=== PATIENT | female | born 1995 | race Hispanic/Latino ===

== ENCOUNTER 2021-02-11 19:22 | Emergency (ER) | payer OTHER, SELFPAY ==
--- NOTE | 2021-02-11 19:31 | ED.EXTPRO ---
HPI - Extremity Problem General Chief complaint: Extremity Problem,Nontraumatic Stated complaint: Vein pain on leg Time Seen by Provider: 02/11/21 19:31 Source: patient Mode of arrival: ambulatory Limitations: no limitations History of Present Illness HPI Narrative: Dain Neri is a 26 yo female with PMH of GERD, Ishmael Danlo syndrome, comes with pain in vein of left inner thigh to foot x 2weeks - has tried ice, ibuprofen, tiger balm, without improvement. She is concerned about having a blood clot Related Data Home Medications Medication Instructions Recorded Confirmed duloxetine mg PO 02/11/21 famotidine 02/11/21 levonorgestrel [Mirena] 1 device INTRAUTERINE ONCE 02/11/21 02/11/21 Allergies Allergy/AdvReac Type Severity Reaction Status Date / Time Penicillins Allergy Mild Rash Unverified 02/11/21 19:35 AMOXICILLIN TRIHYDRATE Allergy Unknown Rash Uncoded 02/11/21 19:35 POTASSIUM CLAVULANATE Allergy Unknown Rash Uncoded 02/11/21 19:35 Review of Systems Review of Systems: Narrative: CONSTITUTIONAL: Denies fever, chills, sweats. EYES: Denies visual changes, redness, discharge. ENT: Denies rhinorrhea, congestion, sore throat, otalgia. CARDIOVASCULAR: Denies chest pain, palpitations, edema. RESPIRATORY: Denies dyspnea, wheezing, cough GASTROINTESTINAL: Denies abdominal pain, nausea, vomiting, diarrhea. GENITOURINARY: Denies dysuria, hematuria, abnormal discharge SKIN: Denies rash or itching. NEUROLOGIC: Denies numbness, or focal weakness. PSYCHIATRIC: Denies anxiety or depression. Left leg pain and small bruise at the medial thigh PMFSH Past Medical History Medical History Ishmael-Danlos disease GERD (gastroesophageal reflux disease) Social History Social History (Updated 02/11/21 @ 19:52 by Leta John CNP) Smoking status: Never smoker Living arrangements: with family Comments At time of signature, I agree with nursing past medical, surgical, social and family history. There is no relevant family history pertinent to the presenting complaint. Exam Narrative: Exam Narrative: GENERAL: This is a well-nourished, well-developed patient, in mild distress. HEAD: normocephalic, atraumatic. EYES: PERRL. Sclera clear/white. Vision is grossly intact. EARS: External ears normal, auditory canals clear and without drainage, TMs normal without perforation. Hearing grossly intact. NOSE: External nose normal without nasal discharge, nares without redness, no rhinorrhea. THROAT: Mucous membranes moist, posterior pharynx NECK: Neck supple, non-tender CARDIOVASCULAR: Regular rate and rhythm without murmurs, gallops, or rubs. RESPIRATORY: Clear to auscultation. Breath sounds equal bilaterally. No wheezes, rales, or rhonchi. GASTROINTESTINAL: Abdomen soft, non-tender, SKIN: warm, intact with no suspicious lesions or rash, good texture and turgor. NEURO: awake, alert, and oriented to person, place and time. There were no obvious focal neurologic abnormalities. Steady gait EXTREMITIES: Normal range of motion. Patient has light bruise at medial side of ankle says she has pain up the vein all the way up her left leg-no swelling of the calves no redness no warmth. There is symmetrical BACK: Nontender without deformity Course Course Emergency Course: Her concern is that she has a blood clot discussed that if it worsens she go to the ER for evaluation but given that is going on for 2 weeks and she has a primary care doctor in [place] that deals with her disease she should call them first thing on Saturday morning except an appointment as they have her history and are more familiar with potential complications of her illness Encouraged to use [id number] medications for pain offered small dose of muscle her axilla which she refused Vital Signs Vital signs: Vital Signs Temperature 99.2 F 02/11/21 19:32 Pulse Rate 128 H 02/11/21 19:32 Respiratory Rate
[2021-02-11 19:32] VITALS: BP 133/87; PULSE 128; RESP 12; TEMP 37.3; O2SAT 99
[2021-02-11 19:36] VITALS: BP 133/87; PULSE 128; RESP 12; TEMP 37.3; O2SAT 99
--- NOTE | 2021-02-11 19:40 | PC.NURSE ---
0-left extremity warm to touch, pedal pulse present. Patient reports pain from mid thigh to ankle on the medial aspect of the left leg. small area of discoloration, brownish in color noted at the left ankle above the medial malleolus.
== END 2021-02-11 19:58 | disposition home or self-care (01) ==
PROVIDERS: Emergency Provider Nurse Practitioner
DX: M79.605 Pain in left leg (principal); Q79.60 Ehlers-Danlos syndrome, unspecified; K21.9 Gastro-esophageal reflux disease without esophagitis
CPT/HCPCS: 99212; G0463